=== PATIENT | male | born 1955 | race Caucasian/White ===

== ENCOUNTER 2021-11-30 13:00 | Outpatient (CLI) | payer MEDICARE | END 2021-11-30 13:01 | disposition home or self-care (01) | LOC: CSHWCC 13:00 | PROVIDERS: ATTEND Nurse Practitioner Family | DX: L89.324 Pressure ulcer of left buttock, stage 4 (principal); I87.312 Chronic venous hypertension (idiopathic) with ulcer of left lower extremity; L97.322 Non-pressure chronic ulcer of left ankle with fat layer exposed; R60.0 Localized edema | CPT/HCPCS: 97139; G0463; 99203 ==

== ENCOUNTER 2021-12-01 10:50 | Inpatient (IN) | payer MEDICARE ==
[2021-12-01 12:32] LABS: #Eosinphils 0.1 10x3/uL (0.0-0.5); #Monocytes 1.1 10x3/uL (0.0-1.1); #Neutrophils 8.6 10x3/uL (1.5-8.4); %Basophils 0.3 % (0.0-2.0); %Lymphocytes 20.9 % (18.0-47.0); %Monocytes 8.8 % (0.0-10.0); %Neutrophils 68.3 % (40.0-75.0); Hemoglobin 12.3 g/dL (13.5-17.5); Mean Corpuscular HGB CONC 33.8 g/dL (32.0-36.0); Mean Corpuscular Hemoglobin 34.8 pg (27.0-33.0); Mean Corpuscular Volume 103.1 fl (81.2-95.1); Platelet Count 266 10x3/uL (150-450); RBC Distribution Width 12.9 % (11.5-14.5); Red Blood Cell (RBC) Count 3.53 10x6/uL (4.32-5.72); White Blood Cell (WBC) Count 12.6 10x3/uL (3.5-10.5)
[2021-12-01] MEDS ORDERED: Cefepime 2 GM VIAL ONE (12:33)
[2021-12-01 12:45] LABS: ALT (SGPT) 11 U/L (8-55); AST (SGOT) 13 U/L (5-34); Albumin 3.9 g/dL (3.4-4.8); Alkaline Phosphatase 59 U/L (40-110); Anion Gap 13 mmol/L (10-20); BUN (Urea Nitrogen) 16 mg/dL (8.4-25.7); Bilirubin, Total 0.6 mg/dL (0.2-1.2); Calc. Creatinine Clearance 0 mL/min (70-130); Calcium 9.4 mg/dL (7.8-10.44); Carbon Dioxide 24 mmol/L (23-31); Chloride 103 mmol/L (98-107); Estimated GFR 96; Globulin 3.1 g/dL (2.4-3.5); Glucose 100 mg/dL (80-115); Potassium 4.4 mmol/L (3.5-5.1); Sodium 136 mmol/L (136-145)
[2021-12-01] MEDS ORDERED: Ondansetron PF 4 MG/2 ML Vial ONE (13:33)
[2021-12-01] MEDS ORDERED: Morphine 4 MG/ML VIAL ONE (13:33)
[2021-12-01] MEDS ORDERED: Acetaminophen 325 MG TAB PO PRN (14:55)
[2021-12-01] MEDS ORDERED: Ondansetron PF 4 MG/2 ML Vial IVP PRN (14:55)
[2021-12-01] MEDS ORDERED: Ondansetron ODT 4 MG TAB PO PRN (15:31)
[2021-12-01] MEDS ORDERED: Lorazepam 2 MG/ML VIAL IM PRN (15:31)
[2021-12-01] MEDS ORDERED: Lorazepam 1 MG TAB PO PRN (15:31)
[2021-12-01] MEDS ORDERED: Electrolyte Replacement Protocol 1 EACH FS SCH (15:45)
[2021-12-01 16:47] LABS: #Eosinphils 0.2 10x3/uL (0.0-0.5); #Monocytes 1.3 10x3/uL (0.0-1.1); #Neutrophils 7.3 10x3/uL (1.5-8.4); %Basophils 0.3 % (0.0-2.0); %Eosinophils 1.3 % (0.0-6.0); %Lymphocytes 25.9 % (18.0-47.0); %Neutrophils 60.9 % (40.0-75.0); Hemoglobin 12.5 g/dL (13.5-17.5); Mean Corpuscular HGB CONC 33.4 g/dL (32.0-36.0); Mean Corpuscular Hemoglobin 34.6 pg (27.0-33.0); Mean Corpuscular Volume 103.6 fl (81.2-95.1); Mean Platelet Volume 9.2 fl (7.4-10.4); Platelet Count 249 10x3/uL (150-450); RBC Distribution Width 12.8 % (11.5-14.5); Red Blood Cell (RBC) Count 3.61 10x6/uL (4.32-5.72)
[2021-12-01 17:00] LABS: ALT (SGPT) 11 U/L (8-55); Albumin 3.7 g/dL (3.4-4.8); Alkaline Phosphatase 57 U/L (40-110); Anion Gap 17 mmol/L (10-20); BUN (Urea Nitrogen) 15 mg/dL (8.4-25.7); Bilirubin, Total 0.5 mg/dL (0.2-1.2); Calc. Creatinine Clearance 0 mL/min (70-130); Calcium 9.1 mg/dL (7.8-10.44); Carbon Dioxide 20 mmol/L (23-31); Chloride 104 mmol/L (98-107); Estimated GFR 96; Globulin 3.5 g/dL (2.4-3.5); Glucose 106 mg/dL (80-115); Potassium 5.1 mmol/L (3.5-5.1); Protein, Total 7.2 g/dL (5.8-8.1); Sodium 136 mmol/L (136-145)
[2021-12-01 17:02] LABS: AST (SGOT) 18 U/L (5-34); Bilirubin, Direct 0.2 mg/dL (0.1-0.3); Magnesium 2.4 mg/dL (1.6-2.6); Phosphorus 3.1 mg/dL (2.3-4.7)
[2021-12-01 17:20] LABS: Syphilis Antibody Nonreactive (Nonreactive); Syphilis Antibody Index 0.09 S/CO (<1.00 Non-Reactive)
[2021-12-01] MEDS ORDERED: Cefepime 1 GM in Sodium Chloride 0.9% 100 ML IVPB SCH (21:00)
[2021-12-02] MEDS ORDERED: Lorazepam 1 MG TAB ONE (01:08)
[2021-12-02] MEDS ORDERED: Nicotine 14 MG PATCH ONE (01:08)
[2021-12-02] MEDS ORDERED: Famotidine/PF 20 mg/2ml Vial ONE (01:08)
[2021-12-02] MEDS ORDERED: Thiamine HCl 200 MG/2 ML VIAL ONE (01:08)
[2021-12-02] MEDS: Famotidine/PF 20 mg/2ml Vial SLOW IVP SCH ×3 (01:45→21:19)
[2021-12-02] MEDS: Lorazepam 1 MG TAB PO SCH ×5 (01:45→21:20)
[2021-12-02] MEDS: Thiamine HCl 200 MG/2 ML VIAL SLOW IVP SCH ×2 (01:46→21:20)
[2021-12-02] MEDS: Nicotine 14 MG PATCH TD SCH ×2 (01:46→21:25)
[2021-12-02] MEDS: VANCOMYCIN 1.25 GM/250 ML BAG 1.25 GM in Premix Bag 1 BAG IVPB SCH ×2 (01:56→14:10)
[2021-12-02 01:58] LABS: Bilirubin Neg (Negative); Blood, Urine 25 (Negative); Glucose, Urine (Dipstick) Normal (Negative); Ketone, Urine Negative (Negative); Leukocyte 500 (Negative); Nitrite Positive (Negative); Protein, Urine (Dipstick) 30 mg/dl (Neg-Trace); Specific Gravity, Urine 1.015 (1.005-1.030); Urobilinogen Normal mg/dL (Less than 2)
[2021-12-02 02:13] LABS: RBC/HPF 0-3 HPF (0-3); WBC/HPF 21-50 HPF (0-3)
[2021-12-02 02:14] LABS: Bacteria/HPF 2+ HPF (None Seen); Squamous Epithelial 0-3 HPF (0-3); White Blood Cell Cast 0-3 LPF (None Seen)
[2021-12-02 02:15] LABS: Urine Culture Reflex Yes Yes
[2021-12-02] MEDS ORDERED: Cefepime 1 GM VIAL ONE (03:53)
[2021-12-02] MEDS: Cefepime 1 GM in Sodium Chloride 0.9% 100 ML IVPB SCH ×2 (03:57→15:55)
[2021-12-02 04:46] LABS: #Basophils 0.1 10x3/uL (0.0-0.2); #Eosinphils 0.2 10x3/uL (0.0-0.5); #Neutrophils 6.8 10x3/uL (1.5-8.4); %Basophils 0.5 % (0.0-2.0); %Eosinophils 1.5 % (0.0-6.0); %Lymphocytes 22.5 % (18.0-47.0); %Monocytes 9.8 % (0.0-10.0); %Neutrophils 64.9 % (40.0-75.0); Hemoglobin 11.4 g/dL (13.5-17.5); Mean Corpuscular HGB CONC 32.7 g/dL (32.0-36.0); Mean Corpuscular Hemoglobin 33.9 pg (27.0-33.0); Mean Corpuscular Volume 103.9 fl (81.2-95.1); Mean Platelet Volume 9.3 fl (7.4-10.4); Platelet Count 226 10x3/uL (150-450); Red Blood Cell (RBC) Count 3.36 10x6/uL (4.32-5.72); White Blood Cell (WBC) Count 10.5 10x3/uL (3.5-10.5)
[2021-12-02 05:02] LABS: Anion Gap 12 mmol/L (10-20); BUN (Urea Nitrogen) 14 mg/dL (8.4-25.7); Calc. Creatinine Clearance 0 mL/min (70-130); Calcium 9.2 mg/dL (7.8-10.44); Carbon Dioxide 24 mmol/L (23-31); Chloride 105 mmol/L (98-107); Estimated GFR 97; Glucose 124 mg/dL (80-115); Potassium 4.2 mmol/L (3.5-5.1); Sodium 137 mmol/L (136-145)
[2021-12-02] MEDS: Enoxaparin Sodium 40 MG/0.4 ML SYRINGE SC SCH (10:12)
[2021-12-02] MEDS: Folic Acid 1 MG TAB PO SCH (10:14)
[2021-12-02] MEDS: Multivit, Therapeutic 1 TAB PO SCH (10:17)
[2021-12-02 10:58] VITALS: BMI 35.2
[2021-12-02] MEDS: HYDROcodone/Acetaminophen 10/325 mg Tablet PO PRN ×2 (12:16→21:25)
[2021-12-02] MEDS ORDERED: Morphine 4 MG/ML VIAL SLOW IVP SCH (14:00)
[2021-12-02] MEDS ORDERED: Lorazepam 1 MG TAB PO PRN (15:32)
[2021-12-02] MEDS: Gabapentin 400 MG CAP PO SCH ×2 (15:53→21:24)
[2021-12-02] MEDS: hydrALAZINE 10 MG TAB PO SCH ×2 (15:55→21:21)
[2021-12-02] MEDS ORDERED: Aspirin 81 mg Enteric Coated Tablet PO SCH (21:00)
[2021-12-02] MEDS: Carvedilol 3.125 MG TAB PO SCH (21:23)
[2021-12-02] MEDS: Atorvastatin Calcium 40 MG TAB PO SCH (21:24)
[2021-12-02] MEDS: Losartan Potassium 50 MG TAB PO SCH (21:24)
[2021-12-03] MEDS: VANCOMYCIN 1.25 GM/250 ML BAG 1.25 GM in Premix Bag 1 BAG IVPB SCH (00:20)
[2021-12-03] MEDS: Lorazepam 1 MG TAB PO SCH ×3 (04:44→17:20)
[2021-12-03] MEDS: Cefepime 1 GM in Sodium Chloride 0.9% 100 ML IVPB SCH (04:44)
[2021-12-03 05:12] LABS: #Eosinphils 0.2 10x3/uL (0.0-0.5); #Monocytes 0.8 10x3/uL (0.0-1.1); #Neutrophils 4.8 10x3/uL (1.5-8.4); %Basophils 0.5 % (0.0-2.0); %Eosinophils 1.9 % (0.0-6.0); %Lymphocytes 31.7 % (18.0-47.0); %Monocytes 9.1 % (0.0-10.0); %Neutrophils 56.2 % (40.0-75.0); Hemoglobin 10.9 g/dL (13.5-17.5); Mean Corpuscular HGB CONC 32.6 g/dL (32.0-36.0); Mean Corpuscular Hemoglobin 34.2 pg (27.0-33.0); Mean Corpuscular Volume 104.7 fl (81.2-95.1); Mean Platelet Volume 9.3 fl (7.4-10.4); Platelet Count 232 10x3/uL (150-450); RBC Distribution Width 12.9 % (11.5-14.5); Red Blood Cell (RBC) Count 3.19 10x6/uL (4.32-5.72); White Blood Cell (WBC) Count 8.6 10x3/uL (3.5-10.5)
[2021-12-03 05:41] LABS: Anion Gap 15 mmol/L (10-20); BUN (Urea Nitrogen) 12 mg/dL (8.4-25.7); Calc. Creatinine Clearance 144 mL/min (70-130); Calcium 9.3 mg/dL (7.8-10.44); Carbon Dioxide 22 mmol/L (23-31); Chloride 107 mmol/L (98-107); Estimated GFR 97; Glucose 101 mg/dL (80-115); Sodium 140 mmol/L (136-145)
[2021-12-03 05:46] LABS: SARS-CoV-2 NAA Rapid Test Not Detected (NotDetected)
[2021-12-03] MEDS ORDERED: Venlafaxine HCl XR 150 MG CAP PO SCH (09:00)
[2021-12-03] MEDS: Enoxaparin Sodium 40 MG/0.4 ML SYRINGE SC SCH (10:13)
[2021-12-03] MEDS: Gabapentin 400 MG CAP PO SCH ×3 (10:14→23:09)
[2021-12-03] MEDS: Losartan Potassium 50 MG TAB PO SCH ×2 (10:14→23:08)
[2021-12-03] MEDS: Venlafaxine HCl XR 75 MG CAP PO SCH (10:14)
[2021-12-03] MEDS: Carvedilol 3.125 MG TAB PO SCH ×2 (10:15→23:08)
[2021-12-03] MEDS: Furosemide 40 MG TAB PO SCH (10:15)
[2021-12-03] MEDS: Folic Acid 1 MG TAB PO SCH (10:15)
[2021-12-03] MEDS: hydrALAZINE 10 MG TAB PO SCH ×3 (10:15→23:08)
[2021-12-03] MEDS: Multivit, Therapeutic 1 TAB PO SCH (10:15)
[2021-12-03] MEDS: Famotidine/PF 20 mg/2ml Vial SLOW IVP SCH ×2 (10:15→23:07)
[2021-12-03] MEDS: HYDROcodone/Acetaminophen 10/325 mg Tablet PO PRN ×3 (12:14→23:10)
[2021-12-03] MEDS: Vancomycin HCl 1 GM in Sodium Chloride 0.9% 250 ML 250 ML IVPB SCH ×2 (12:26→23:29)
[2021-12-03] MEDS ORDERED: PROPOFOL 20 ML ONE (13:22)
[2021-12-03] MEDS ORDERED: Fentanyl 100 MCG/2 ML VIAL ONE (13:22)
[2021-12-03] MEDS ORDERED: Lidocaine 1% PF 5 ML VIAL ONE (13:23)
[2021-12-03] MEDS ORDERED: Rocuronium Bromide 10 MG/ML (10ML VIAL) ONE (13:23)
[2021-12-03] MEDS ORDERED: EPINEPHrine 1 MG/ML AMP ONE (13:28)
[2021-12-03] MEDS ORDERED: Glycopyrrolate 0.2 MG/ML 5 ML SYRINGE ONE (14:26)
[2021-12-03] MEDS ORDERED: ePHEDrine Sulfate 50 MG/10 ML VIAL ONE (14:34)
[2021-12-03] MEDS ORDERED: Bupivacaine PF 0.5% 30 ML VIAL ONE (15:02)
[2021-12-03] MEDS ORDERED: Lorazepam 1 MG TAB PO PRN (15:32)
[2021-12-03] MEDS ORDERED: Sodium Chloride 0.9% 100 ML ONE (17:12)
[2021-12-03] MEDS: Cefepime 2 GM in Sodium Chloride 0.9% 100 ML IVPB SCH (17:16)
[2021-12-03] MEDS ORDERED: hydrALAZINE 20 MG/ML VIAL SLOW IVP PRN (18:13)
[2021-12-03] MEDS: Thiamine HCl 200 MG/2 ML VIAL SLOW IVP SCH (23:07)
[2021-12-03] MEDS: Atorvastatin Calcium 40 MG TAB PO SCH (23:07)
[2021-12-03] MEDS: Lorazepam 0.5 MG TAB PO SCH (23:08)
[2021-12-03] MEDS: Nicotine 14 MG PATCH TD SCH (23:16)
[2021-12-04] MEDS: Lorazepam 0.5 MG TAB PO SCH ×2 (02:58→10:29)
[2021-12-04] MEDS: HYDROcodone/Acetaminophen 10/325 mg Tablet PO PRN ×2 (02:58→10:30)
[2021-12-04] MEDS: Cefepime 2 GM in Sodium Chloride 0.9% 100 ML IVPB SCH (04:25)
[2021-12-04 06:49] LABS: Anion Gap 14 mmol/L (10-20); BUN (Urea Nitrogen) 11 mg/dL (8.4-25.7); Calc. Creatinine Clearance 151 mL/min (70-130); Calcium 9.4 mg/dL (7.8-10.44); Carbon Dioxide 22 mmol/L (23-31); Chloride 107 mmol/L (98-107); Estimated GFR 98; Glucose 101 mg/dL (80-115); Potassium 4.1 mmol/L (3.5-5.1); Sodium 139 mmol/L (136-145)
[2021-12-04 06:56] LABS: #Eosinphils 0.3 10x3/uL (0.0-0.5); #Monocytes 0.8 10x3/uL (0.0-1.1); #Neutrophils 6.2 10x3/uL (1.5-8.4); %Basophils 0.4 % (0.0-2.0); %Eosinophils 2.7 % (0.0-6.0); %Lymphocytes 24.9 % (18.0-47.0); %Monocytes 7.7 % (0.0-10.0); %Neutrophils 63.8 % (40.0-75.0); Hemoglobin 11.5 g/dL (13.5-17.5); Mean Corpuscular Hemoglobin 34.5 pg (27.0-33.0); Mean Corpuscular Volume 104.5 fl (81.2-95.1); Mean Platelet Volume 9.2 fl (7.4-10.4); Platelet Count 237 10x3/uL (150-450); RBC Distribution Width 12.6 % (11.5-14.5); Red Blood Cell (RBC) Count 3.33 10x6/uL (4.32-5.72); White Blood Cell (WBC) Count 9.7 10x3/uL (3.5-10.5)
[2021-12-04] MEDS: Venlafaxine HCl XR 75 MG CAP PO SCH (10:27)
[2021-12-04] MEDS: Furosemide 40 MG TAB PO SCH (10:27)
[2021-12-04] MEDS: Multivit, Therapeutic 1 TAB PO SCH (10:27)
[2021-12-04] MEDS: Gabapentin 400 MG CAP PO SCH (10:27)
[2021-12-04] MEDS: Carvedilol 3.125 MG TAB PO SCH (10:28)
[2021-12-04] MEDS: Folic Acid 1 MG TAB PO SCH (10:28)
[2021-12-04] MEDS: Famotidine/PF 20 mg/2ml Vial SLOW IVP SCH (10:29)
[2021-12-04] MEDS: Losartan Potassium 50 MG TAB PO SCH (10:29)
[2021-12-04] MEDS: Enoxaparin Sodium 40 MG/0.4 ML SYRINGE SC SCH (10:29)
[2021-12-04] MEDS: hydrALAZINE 10 MG TAB PO SCH (10:35)
[2021-12-04 12:20] VITALS: TEMP 97.9
[2021-12-04] MEDS: Vancomycin HCl 1 GM in Sodium Chloride 0.9% 250 ML 250 ML IVPB SCH (13:41)
[2021-12-04] MEDS ORDERED: hydrALAZINE 25 MG TAB PO SCH (15:00)
[2021-12-04] MEDS ORDERED: Lorazepam 0.5 MG TAB PO PRN (15:32)
[2021-12-04 18:07] VITALS: BP 128/65
[2021-12-04] MEDS ORDERED: Thiamine 100 MG TAB PO SCH (21:00)
== END 2021-12-04 16:05 | disposition home or self-care (01) | DRG 673 ==
LOC: CSHERS 10:50 → CSHERHOLD 19:38 → CSHTELE 12-02 08:00
PROVIDERS: ADMIT Internal Medicine; ATTEND Internal Medicine
PROC: 3E03329 Introduction of Other Anti-infective into Peripheral Vein, Percutaneous Approach (ICD-10-PCS; 2021-12-01)
PROC: 0JB90ZZ Excision of Buttock Subcutaneous Tissue and Fascia, Open Approach (ICD-10-PCS; principal; 2021-12-03)
DX: T83.510A Infection and inflammatory reaction due to cystostomy catheter, initial encounter (principal); A41.9 Sepsis, unspecified organism; N39.0 Urinary tract infection, site not specified; G83.4 Cauda equina syndrome; Z20.822 Contact with and (suspected) exposure to COVID-19; I25.10 Atherosclerotic heart disease of native coronary artery without angina pectoris; I50.9 Heart failure, unspecified; J44.9 Chronic obstructive pulmonary disease, unspecified; I11.0 Hypertensive heart disease with heart failure; Y84.6 Urinary catheterization as the cause of abnormal reaction of the patient, or of later complication, without mention of misadventure at the time of the procedure; E78.5 Hyperlipidemia, unspecified; F17.210 Nicotine dependence, cigarettes, uncomplicated; Z88.0 Allergy status to penicillin; Z79.82 Long term (current) use of aspirin; Z79.899 Other long term (current) drug therapy; Z79.02 Long term (current) use of antithrombotics/antiplatelets; Z95.5 Presence of coronary angioplasty implant and graft; I25.2 Old myocardial infarction
CPT/HCPCS: 36415; 71045; 74177; 80048; 80053; 80202; 81001; 82248; 83605; 83735; 84100; 84484; 85025; 86780; 87040; 87077; 87086; 87186; 93005; 94760; 96365; 96366; 96367; 96375; 97139; J0171; J0360; J0692; J1650; J2270; J2405; J2704; J3010; J3370; J3411; J3490; J7050; S0020; S0028; U0002

== ENCOUNTER 2021-12-08 14:57 | Outpatient (CLI) | payer MEDICARE | END 2021-12-08 14:58 | disposition home or self-care (01) | LOC: CSHWCC 14:57 | PROVIDERS: ATTEND Preventive Medicine Undersea and Hyperbaric Medicine | DX: L89.324 Pressure ulcer of left buttock, stage 4 (principal); I87.312 Chronic venous hypertension (idiopathic) with ulcer of left lower extremity; L97.322 Non-pressure chronic ulcer of left ankle with fat layer exposed; R60.0 Localized edema | CPT/HCPCS: 97607 ==

== ENCOUNTER 2022-03-17 12:57 | Outpatient (CLI) | payer MEDICARE | END 2022-03-17 12:58 | disposition home or self-care (01) | LOC: CSHWCC 12:57 | PROVIDERS: ATTEND Preventive Medicine Undersea and Hyperbaric Medicine | DX: L89.324 Pressure ulcer of left buttock, stage 4 (principal); R60.0 Localized edema | CPT/HCPCS: 11042; 97605; 99213; G0463 ==

== ENCOUNTER 2022-04-28 14:08 | Outpatient (CLI) | payer MEDICARE | END 2022-04-28 14:09 | disposition home or self-care (01) | LOC: CSHWCC 14:08 | PROVIDERS: ATTEND Nurse Practitioner Family | DX: L89.324 Pressure ulcer of left buttock, stage 4 (principal); L89.616 Pressure-induced deep tissue damage of right heel; R60.0 Localized edema; I87.312 Chronic venous hypertension (idiopathic) with ulcer of left lower extremity; L97.322 Non-pressure chronic ulcer of left ankle with fat layer exposed ==